=== PATIENT | male | born 1995 | race Caucasian/White ===

== ENCOUNTER 2019-11-05 06:16 | Day surgery (SDC) | payer OTHER ==
[~2019-11-05] VITALS: Ht 170.2 cm; Wt 102.5 kg
[2019-11-05] MEDS ORDERED: PROCHLORPERAZINE 10 MG/2 ML VIAL. IV PRN (07:00)
[2019-11-05] MEDS ORDERED: IV RINGERS,LACTATED 1000ML 1,000 ML IV SCH (07:00)
[2019-11-05] MEDS ORDERED: HYDROmorphone 2 MG/ML VIAL IV PRN (07:00)
[2019-11-05] MEDS ORDERED: MORPHINE SULFATE 2 MG/ML VIAL. IV PRN (07:00)
[2019-11-05] MEDS ORDERED: LIDOCAINE 1% PF 2 ML VIAL. ID PRN (07:00)
[2019-11-05] MEDS ORDERED: fentaNYL PF VIAL 100 MCG/2 ML VIAL IV PRN ×2 (07:00)
[2019-11-05] MEDS ORDERED: ONDANSETRON PF 4 MG/2 ML VIAL. IV PRN (07:00)
[2019-11-05] MEDS ORDERED: BUPIVACAINE-EPI 0.5%-1:200000 MPF 30 ML VIAL. ONE (07:22)
[2019-11-05] MEDS ORDERED: LIDOCAINE 2% PF 5 ML VIAL. ONE (07:22)
[2019-11-05] MEDS ORDERED: PROPOFOL 20 ML IV ONE (07:22)
[2019-11-05] MEDS ORDERED: SUCCINYLCHOLINE 200 MG/10 ML VIAL. ONE (07:23)
[2019-11-05] MEDS ORDERED: fentaNYL PF VIAL 100 MCG/2 ML VIAL ONE (07:23)
[2019-11-05] MEDS ORDERED: ROCURONIUM 50 MG/5 ML VIAL. ONE (07:23)
[2019-11-05] MEDS ORDERED: ceFAZolin 2GM PREMIX 2 GM/50 ML BAG IV ONE (08:00)
[2019-11-05] MEDS ORDERED: DEXAMETHASONE SOD PHOS 4 MG/ML VIAL ONE (08:05)
[2019-11-05] MEDS ORDERED: GLYCOPYRROLATE 1 MG/5 ML VIAL. ONE (08:05)
[2019-11-05] MEDS ORDERED: NEOSTIGMINE METHYLSULFATE 5 MG/5 ML SYRINGE. ONE (08:05)
[2019-11-05] MEDS ORDERED: ONDANSETRON PF 4 MG/2 ML VIAL. ONE (08:05)
[2019-11-05] MEDS ORDERED: DESFLURANE 31 TO 60 MINUTES IH ONE (08:07)
[2019-11-05] MEDS ORDERED: KETOROLAC 30 MG/ML VIAL. ONE (08:07)
[2019-11-05] MEDS ORDERED: SURGICEL HEMOSTAT 2X14 EACH. ONE (08:08)
[2019-11-05] MEDS ORDERED: GELATIN SPONGE SIZE 12-7MM SPONGE. ONE (08:08)
[2019-11-05] MEDS ORDERED: MEPERIDINE PF 25 MG/ML VIAL. ONE (08:29)
[2019-11-05] MEDS ORDERED: MEPERIDINE PF 25 MG/ML VIAL. IV PRN (08:30)
[2019-11-05] MEDS ORDERED: OXYC1TAB15 PO (08:48)
--- NOTE | 2019-11-05 08:53 | DISCH ---
DISCHARGE INSTRUCTIONS Condition on Discharge Condition on Discharge: Stable Activity After Discharge Activity Instructions for Disc: Activity as tolerated, Avoid exertion Lifting Instructions after Dis: No heavy lifting Driving Instructions after Dis: Do not drive today Diet after Discharge Diet after Discharge: Regular Wound Incision Care Wound/Incision Care: Ice to area for comfort, Keep wound/cast CDI Follow-Up Follow up with: Venkatesh in [place] office 11/06 SARINA ESPINAL MD Nov 05, 2019 08:53
--- NOTE | 2019-11-05 09:09 | PDOC ---
BRIEF OPERATIVE NOTE Date: Nov 05, 2019 Pre-Op Diagnosis pilonidal abscess Post-Op Diagnosis same Procedure Performed excisional debridement of skin and subcutaneous tissue Surgeon Venkatesh Anesthesia Type: General Blood Loss 25cc IV Fluid 900cc Specimens Obtained skin and subcutaneous tissue from supragluteal cleft Findings abscess with lateral extension to the left side of midline Complications none Operative Note Wk # [id number] SARINA ESPINAL MD Nov 05, 2019 09:09
[2019-11-05 09:20] VITALS: BP 146/82
--- NOTE | 2019-11-05 09:37 | OP ---
DATE OF SURGERY: 11/05/2019 PREOPERATIVE DIAGNOSIS: Pilonidal abscess. POSTOPERATIVE DIAGNOSIS: Pilonidal abscess. PROCEDURE: Excisional debridement of skin and subcutaneous tissue, supragluteal cleft. SURGEON: Truman Espinal MD ANESTHESIA: General endotracheal. ESTIMATED BLOOD LOSS: 25 mL. INTRAVENOUS FLUIDS: 900 mL. 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 DESCRIPTION OF PROCEDURE: The patient brought to the operating suite, given a general endotracheal anesthetic and placed in the prone jackknife position and the buttocks taped apart. Area prepped and draped in usual sterile fashion. The opening from the abscess was gently probed with a hemostat to explore the extent. The area was unroofed and skin and subcutaneous tissue including part of the cyst wall and hair were excised. There was extension of the process to the left of midline toward 2 o'clock. In light of this, a traction incision was made and a 0.25-inch Warren was threaded through the tract. Cultures were taken. The wound was irrigated, evacuated and checked for adequate hemostasis. When present and a correct sponge count was obtained, the wound was dressed with Surgicel and 0.5-inch plain Nu Gauze soaked in saline. Sterile dressing applied. The patient was taken out of the prone position, awakened from his anesthetic and taken to the recovery room in satisfactory condition. TRUMAN ESPINAL MD DR: REESE/emely JOB#: [id number] / [id number] BRADEN Steve MD
--- NOTE | 2019-11-06 14:17 | PATHOLOGY ---
[facility] Accession Number: [id number] . 01 Material submitted: . gluteal cleft - SKIN AND SUBCUTANEOUS TISSUE SUPRA GLUTEAL CLEFT . 01 Clinical history: . Pilonidal abscess . 02 Diagnosis: Segments of skin and subcutaneous tissue, excision/debridement supragluteal cleft: - Abscess consistent with pilonidal abscess. (JPM:charis; 11/06/2019) MBR 11/06/2019 1356 Local . 02 Electronically signed: . Vikas House MD, Pathologist NPI- [id number] . 01 Gross description: . The specimen is received in formalin, labeled "Higgins, Dameon, skin and subcutaneous tissue supra gluteal cleft" and consists of a segment of skin measuring 2.0 x 0.7 cm excised to a depth of 1.4 cm. The skin surface displays a linear crease measuring 1.5 cm. Sectioning reveals focal possible underlying abscess formation. Also received is a cauterized segment of yellow tissue measuring 1.5 x 1.5 x 0.6 cm. Mud Cleaner Operator sections are submitted in A1. (SDY; 11/05/2019) SYU/SYU 11/05/2019 1537 Local . 02 Pathologist provided ICD-10: L05.01 . 02 CPT . 939565 Specimen Comment: A courtesy copy of this report has been sent to [phone] Specimen Comment: Report sent to Performed at: 01 [facility] [address] [facility] [address], [place] [id number] MD Lester Merida MD Phone: [phone] Performed at: 02 [facility] [address] [place], [place] [id number] MD Vikas House MD Phone: [phone]
== END 2019-11-05 10:16 | disposition home or self-care (01) ==
LOC: SURG 06:16
PROVIDERS: ATTEND Surgery
DX: L05.01 Pilonidal cyst with abscess (principal); E66.9 Obesity, unspecified; Z68.35 Body mass index [BMI] 35.0-35.9, adult
CPT/HCPCS: 11770; 87071; 87075; J0330; J1100; J1885; J2175; J2405; J2704; J2710; J3010; J3490; 88304; A7015; J0696; A4461